=== PATIENT | male | born 1965 | race Hispanic/Latino ===

== ENCOUNTER 2024-09-15 16:15 | Emergency (ER) | payer BC ==
[~2024-09-15] VITALS: Ht 167.6 cm; Wt 84.4 kg
[2024-09-15 17:34] LABS: BASOPHILS # (AUTO) 0.03 K/uL (0.00-0.20); BASOPHILS % (AUTO) 0.3 % (0.0-5.0); EOSINOPHILS # (AUTO) 0.05 K/uL (0.00-0.70); EOSINOPHILS % (AUTO) 0.5 % (0.0-8.0); HEMATOCRIT 44.7 % (42-54); IMMATURE GRANULOCYTE ABSOLUTE 0.02 K/uL (0-1); LYMPHOCYTES # (AUTO) 0.7 K/uL (1.0-4.8); LYMPHOCYTES % (AUTO) 7.1 % (21.0-51.0); MEAN CORPUSCULAR HEMOGLOBIN 32.8 pg (27.0-33.0); MEAN CORPUSCULAR HGB CONC 34.9 g/dL (32.0-36.0); MEAN CORPUSCULAR VOLUME 93.9 fL (79-99); MONOCYTES # (AUTO) 0.6 K/uL (0.1-1.0); MONOCYTES % (AUTO) 5.9 % (3.0-13.0); NEUTROPHILS # (AUTO) 8.2 K/uL (1.8-7.7); PLATELET COUNT (AUTO) 215 K/uL (130-400); RED BLOOD CELL COUNT(AUTO) 4.76 MIL/uL (4.50-6.20); RED CELL DISTRIBUTION WIDTH 12.1 % (11.0-15.5); WHITE BLOOD COUNT (AUTO) 9.6 K/uL (4.8-10.8)
--- NOTE | 2024-09-15 17:38 | HMCIMG ---
RIGHT KNEE RADIOGRAPHS - 3 VIEWS INDICATION: Swelling COMPARISON: None FINDINGS: AP, lateral, and oblique views. No acute fracture or dislocation identified. No significant joint effusion is present. Overlying soft tissues appear normal. IMPRESSION: No evidence for fracture or dislocation.
[2024-09-15 17:48] LABS: CREATININE 0.8 mg/dL (0.5-1.3); POTASSIUM 3.9 mmol/L (3.5-5.1)
[2024-09-15 18:06] LABS: APPEARANCE,URINE CLEAR (CLEAR); BILIRUBIN,URINE NEGATIVE (NEGATIVE); COLOR,URINE LIGHT-YELLOW (YELLOW); GLUCOSE, URINE (UA) NEGATIVE (NEGATIVE); KETONES,URINE NEGATIVE (NEGATIVE); LEUKOCYTE ESTERASE ,URINE NEGATIVE Leu/uL (NEGATIVE); NITRATE,URINE NEGATIVE (NEGATIVE); OCCULT BLOOD,URINE NEGATIVE (NEGATIVE); PROTEIN,URINE NEGATIVE (NEGATIVE); UROBILINOGEN,URINE 0.2 mg/dL (0.2-1.0)
[2024-09-15 18:13] LABS: ADD UA MICROSCOPIC NO
[2024-09-15 18:25] VITALS: TEMP 100.9
[2024-09-15] MEDS: acetaMINOPHEN 500 MG TABLET PO STA (18:25)
[2024-09-15] MEDS: LIDOCAINE HCL 1% 20 ML VIAL INJ STA (18:26)
[2024-09-15 18:55] LABS: BODY FLUID WBC 1105 /cu. mm.
[2024-09-15 19:01] LABS: APPEARANCE BODY FLUID BLOODY (CLEAR); COLOR,BODY FLUID RED (LT YELLOW); SPECIMENTYPE,BODY FLUID SYNOVIAL; TOTAL VOLUME,BODY FLUID 40 mL
[2024-09-15 19:04] LABS: SARS-CoV-2, RNA, NAAT NEGATIVE SARS CoV-2 (NEGATIVE)
[2024-09-15 19:05] LABS: ERYTHROCYTE SEDIMENTATION RATE 5 MM/HR (0-20)
[2024-09-15 19:09] LABS: INFLUENZA TYPE A Negative For Type A (NEGATIVE); INFLUENZA TYPE B Negative For Type B (NEGATIVE)
--- NOTE | 2024-09-15 19:30 | ERN ---
ED Note History of Present Illness Stated Complaint: RT KNEE FLUID Chief Complaint: Multiple Complaints Time Seen by MD: 16:23 Time Seen by Midlevel: 16:25 Dictation: 59-year-old male coming in with complaints of swelling to the right knee. Patient states a week ago he lightly tapped the knee and a corner and it became swollen. Patient denies having any pain, no bruising, no redness. However patient states he has had a fever at home. Patient states at the time of the accident he was seen at an urgent care and was told if you develop fever to follow up at an ER. Allergies: Coded Allergies: No Known Drug Allergies (Unverified Allergy, Unknown, 09/15/24) Past Medical History Past Medical History: Diabetes-Type II Surgical History: None Review of System Dictation Constitutional: Negative for fever,chills, and weight loss Eyes: Negative for injury, pain,redness, and discharge ENT: Negative for injury,pain or swelling Cardiovascular: Negative for chest pain, palpitations, and edema Respiratory: Negative for shortness of breath, cough, and wheezing, Abdomen/GI: Negative for abdominal pain, nausea, vomiting, diarrhea, and constipation Back: Negative for injury and pain : Negative for injury, bleeding and discharge MS/Extremity: Negative for injury and deformity, right knee swelling Skin: Negative for rash, and discoloration Neuro: Negative for headache, weakness, numbness, tingling, and seizure Psych: Negative for suicide ideation, homicidal ideation, and hallucinations Review of Systems: was completed Initial Vital Sign VS Vital Signs Date Time Temp Pulse Resp B/P (MAP) Pulse Ox O2 Delivery O2 Flow Rate FiO2 09/15/24 16:21 100.9 98 18 152/94 98 Room Air 0 09/15/24 16:50 21 Physical Exam Dictation General: awake, alert, NAD Head/Face: Normocephalic, atraumatic Eyes: PERRL, EOMI, vision at baseline ENT: oral cavity clear, TMs clear, no signs of infection Neck: Trachea midline, supple, no nuchal rigidity Cardiovascular: RRR, normal S1/S2, No MRGs, no JVD Respiratory: CTAB, no respiratory distress, No rales or wheezes Abdomen: Soft, non-tender, non-distended, normal bowel sounds, no guarding or rebound. Skin: Warm, dry, normal turgor, no rash MS/Extremity: Pulses equal, no cyanosis, neurovascular intact, FROM, swollen to the right knee, no pain on palpation, no redness, no bruising, no warmth to touch, no signs of infectious process Neuro: COAx4, GCS 15, strength 5/5, CN 2-12 intact, normal cerebellar exam, normal gait, Psych: Normal behavior, mood, and affect normal Results (Laboratory/Radiology) Laboratory/Radiology Laboratory Tests Test 09/15/24 16:41 09/15/24 17:27 09/15/24 18:26 09/15/24 18:31 Urine Color LIGHT-YELLOW (YELLOW) Urine Appearance CLEAR (CLEAR) Urine pH 5.0 (5.0-8.0) Urine Specific [place] 1.016 (1.001-1.031) Urine Protein NEGATIVE mg/dL (NEGATIVE) Urine Glucose (UA) NEGATIVE mg/dL (NEGATIVE) Urine Ketones NEGATIVE mg/dL (NEGATIVE) Urine Occult Blood NEGATIVE (NEGATIVE) Urine Nitrate NEGATIVE (NEGATIVE) Urine Bilirubin NEGATIVE mg/dL (NEGATIVE) Urine Urobilinogen 0.2 mg/dL (0.2-1.0) Urine Leukocyte Esterase NEGATIVE Jill/uL White Blood Count 9.6 K/uL (4.8-10.8) Red Blood Count 4.76 MIL/uL (4.50-6.20) Hemoglobin 15.6 g/dL (14.0-18.0) Hematocrit 44.7 % (42-54) Mean Corpuscular Volume 93.9 fL (79-99) Mean Corpuscular Hemoglobin 32.8 pg (27.0-33.0) Mean Corpuscular Hemoglobin Concent 34.9 g/dL (32.0-36.0) Red Cell Distribution Width 12.1 % (11.0-15.5) Platelet Count 215 K/uL (130-400) Mean Platelet Volume 10.3 fL (7.5-10.5) Immature Granulocyte % (Auto) 0.2 % (0-1) Neutrophils (%) (Auto) 86.0 % (40.0-77.0) H Lymphocytes (%) (Auto) 7.1 % (21.0-51.0) L Monocytes (%) (Auto) 5.9 % (3.0-13.0) Eosinophils (%) (Auto) 0.5 % (0.0-8.0) Basophils (%) (Auto) 0.3 % (0.0-5.0) Neutrophils # (Auto) 8.2 K/uL (1.8-7.7) H Lymphocytes # (Auto) 0.7 K/uL (1.0-4.8) L Monocytes # (Auto) 0.6 K/uL (0.1-1.0) Eosinophils # (Auto) 0.05 K/uL (0.00-0.70) Basophils # (Auto) 0.03 K/uL (0.00-0.20) Absolute Immature Granulocyte (auto 0.02 K/uL (0-1) Nucleated Red Blood Cells 0.0 % (0.0-0.19) White Cell Morphology Comment See comments Erythrocyte Sedimentation Rate 5 MM/HR (0-20) Sodium Level 136 mmol/L (136-145) Potassium Level 3.9 mmol/L (3.5-5.1) Chloride Level 98 mmol/L (101-111) L Carbon Dioxide Level 27 mmol/L (21-32) Blood Urea Nitrogen 12 mg/dL (7-18) Creatinine 0.8 mg/dL (0.5-1.3) Glomerular Filtration Rate Calc 103 mL/min (>90) Random Glucose 133 mg/dL (70-105) H Lactic Acid Level 2.4 mmol/L (0.8-2.5) Total Calcium 9.3 mg/dL (8.5-10.1) C-Reactive Protein, Quantitative 16.70 mg/L (0.5-3.0) H Influenza Type A Antigen Negative For Type A Influenza Type B Antigen Negative For Type B SARS-CoV-2, RNA, NAAT NEGATIVE SARS CoV-2 Body Fluid Source SYNOVIAL Body Fluid Volume 40 mL Body Fluid Color RED (LT YELLOW) H Body Fluid Supernatant Appearance BLOODY (CLEAR) H Body Fluid WBC 1105 /cu. mm. Body Fluid RBC 802170 /cu. mm. Body Fluid Neutrophils 13.0 % Body Fluid Lymphocytes 85 % Body Fluid Macrophages (%) 2 Labs Reviewed?: Yes X-RAY Comment: [place] [id number] [address] IMAGING REPORT Signed PATIENT: ANJANA SKAGGS MR#: [id number] : 1965 SEX: M AGE: 59 LOCATION: [facility] ORDER 00 STATUS: REG ER REPORT#: [id number] SERVICE 99 REASON: swelling ORDERING PHYSICIAN: RUSS MUNOZ NP PROCEDURE: KNEE 3V RT - KNEE 3VWS RT RIGHT KNEE RADIOGRAPHS - 3 VIEWS INDICATION: Swelling COMPARISON: None FINDINGS: AP, lateral, and oblique views. No acute fracture or dislocation identified. No significant joint effusion is present. Overlying soft tissues appear normal. IMPRESSION: No evidence for fracture or dislocation. DICTATED BY: DARSHAN SOLORIO MD DATE: 09/15/241733 ELECTRONICALLY SIGNED BY: DARSHAN SOLORIO MD DATE: 09/15/241737 ED Course ED Course Orders Procedure Category Date Status Time Knee 3vws Rt RAD 09/15/24 Resulted 17:00 Cbc With Differential LAB 09/15/24 Complete 17:11 Basic Metabolic Panel LAB 09/15/24 Complete 17:11 Lactic Acid LAB 09/15/24 Complete 17:11 Erythrocyte LAB 09/15/24 Complete Sedimentation Rate 17:11 Crp Quantitative LAB 09/15/24 Complete 17:11 Blood Cult MELODY 09/15/24 In Process 17:11 Acetaminophen 500mg PHA 09/15/24 Complete Tab (Tylenol 500mg T 17:13 Urinalysis Profile LAB 09/15/24 Complete 17:48 Covid Rna Naat LAB 09/15/24 Complete 17:50 Influenza Type A & B, LAB 09/15/24 Complete Rapid 17:50 Lidocaine Hcl 1% 20ml PHA 09/15/24 Complete Vial (Lidocaine Hc 17:53 Body Fluid Cell Count LAB 09/15/24 Complete 18:07 Current Medications Medications (Trade) Dose Ordered Sig/Favian Route PRN Reason Start Time Stop Time Status Last Admin Dose Admin Acetaminophen (TYLenol 500MG TAB) 1,000 mg ONCE STAT PO 09/15/24 17:13 09/15/24 17:15 DC 09/15/24 18:25 Lidocaine HCl (Lidocaine HCl 1% 20ml Vial) ONCE STAT INJ 09/15/24 17:53 09/15/24 17:58 DC 09/15/24 18:26 Vital Signs Date Time Temp Pulse Resp B/P (MAP) Pulse Ox O2 Delivery O2 Flow Rate FiO2 09/15/24 19:32 99.7 90 18 145/87 97 Room Air* 0 21 09/15/24 18:43 100.6 93 18 162/91 96 Room Air* 0 21 09/15/24 18:25 100.9 09/15/24 16:50 100.9 98 18 152/94 96 Room Air* 0 21 09/15/24 16:21 100.9 98 18 152/94 98 Room Air 0 Medical Decision Making MDM MDM: 59-year-old male coming in with complaints of swelling to the right knee. Patient states a week ago he lightly tapped the knee and a corner and it became swollen. Patient denies having any pain, no bruising, no redness. However camilo merrill states he has had a fever at home. Patient states at the time of the accident he was seen at an urgent care and was told if you develop fever to follow up at an ER. CBC shows no leukocytosis, no anemia, no thrombocytopenia. ESR within normal range. Chemistry unremarkable. CRP mildly elevated it could just be related to inflammation. Obtain a sample from fluid removed from the knee. Showing white count in the bottle fluid of 1100 L5. This is more likely related to inflammation versus an infectious process. Discussed findings with the patient. Educated patient to apply an Jose bandage all the way from the knee to the foot to help with the swelling. Educated patient that he needs to follow up with PCP and with Orthopedics for further evaluation. Patient verbalized understanding, answered all questions. Differential diagnosis: Bursitis, dislocation of the patella, septic arthritis Rationale: Tests considered and ordered secondary to shared decision making include: Previous outside records reviewed: Old ER visits. Risk of complication and/or morbidity or mortality of patient management: None Medications-Per medication reconciliation Need for hospitalization: Patient does not meet criteria for hospitalization. Need for emergency major/minor surgery: No There are no social concerns with this patient. Prescription drug management Prescriptions will include symptomatic care Patient's prior external medical records from other ER visits were reviewed by me as indicated. Prior testing and results from previous visits were reviewed. Prior tests were taken into account with medical decision making and resource utilization, independent historian/historians were used to obtain complete medical history. I independently interpreted the test that were performed, results were reviewed by me and considered findings on radiology if ordered. Medical management and examination interpretation discussions were had by me with other qualified healthcare professionals as indicated for the patient's care. Procedure Site: Right knee Blade Size: Needle decompression, 40 cc of serosanguineous I & D Procedure: no betadine prep DX & DISP Disposition: Discharge Departure Impression: Primary Impression: Knee bursitis Condition: Stable Additional Instructions: Use compression bandage just to help with the swelling. Follow up with PCP and with your specialist of bone. Return to the hospital if worsening symptoms. Referrals: SELF,REFERRAL (PCP) Time of Disposition: 19:30 I have reviewed the case, and I agree with, Diagnosis and Plan I performed a substantive portion of the visit. I have reviewed and personally made and approve the management plan that is documented in the notes by myself with ELIDIA/resident. I acknowledged full responsibility for the patient's management plan. RUSS MUNOZ NP Sep 15, 2024 19:30 BRAD ROUSE DO Sep 16, 2024 08:21
[2024-09-15 19:31] LABS: BF LYMPHOCYTE 85 %; BF MACROPHAGE 2; BF TOTAL CELLS COUNTED 100
[2024-09-15 19:32] VITALS: BP 145/87; PULSE 90; RESP 18; TEMP 99.7; O2SAT 97
== END 2024-09-15 19:46 | disposition home or self-care (01) ==
LOC: EDH 16:15
DX: M70.51 Other bursitis of knee, right knee (principal); E11.9 Type 2 diabetes mellitus without complications; Z20.822 Contact with and (suspected) exposure to COVID-19; Y93.89 Activity, other specified
CPT/HCPCS: 10060; 36415; 73562; 80048; 81003; 83605; 85025; 85651; 86140; 87040; 87635; 87804; 89051; 99283